=== PATIENT | female | born 1990 | race Caucasian/White ===

== ENCOUNTER 2023-03-10 23:49 | Emergency (ER) | payer SELFPAY ==
[~2023-03-10] VITALS: Ht 167.6 cm; Wt 71.0 kg
[2023-03-11 00:20] VITALS: BP 119/76; PULSE 90; RESP 18; TEMP 98.7; O2SAT 100
[2023-03-11] MEDS ORDERED: LEVETIRACETAM 500MG TABLET PO ONE (08:45)
[2023-03-11] MEDS ORDERED: KEPP500 MT (08:45)
== END 2023-03-11 09:01 | disposition home or self-care (01) ==
LOC: ER 03-11 00:09
DX: Z76.0 Encounter for issue of repeat prescription (principal); Z86.59 Personal history of other mental and behavioral disorders
CPT/HCPCS: 99283